=== PATIENT | female | born 1935 | race Caucasian/White ===

== ENCOUNTER 2017-05-11 12:43 | Emergency (ER) | payer MEDICARE, OTHER ==
[~2017-05-11] VITALS: Ht 160 cm; Wt 87.5 kg
[~2017-05-11 12:43] MED LIST: ALBU18HF INHALATION; PRED20TA PO
[2017-05-11 12:45] VITALS: Ht 160 cm; Wt 87.5 kg
[2017-05-11] MEDS ORDERED: ACETAMINOPHEN 500 MG TAB PO STA (13:07)
[2017-05-11] MEDS ORDERED: SODIUM CHLORIDE 0.9% 1L BAG IV* STA (13:07)
[2017-05-11] MEDS ORDERED: IPRATROPIUM (NEB) 0.5 MG/2.5 ML AMP NEB STA (14:02)
[2017-05-11] MEDS ORDERED: ALBUTEROL 0.083% (NEB) 2.5 MG/3 ML AMP NEB STA (14:02)
[2017-05-11] MEDS ORDERED: IBUP-1542 PO (14:04)
[2017-05-11] MEDS ORDERED: HYDR-906 PO (14:05)
[2017-05-11] MEDS ORDERED: AMLO5TAB4 PO (14:05)
[2017-05-11] MEDS ORDERED: METO-448 PO (14:06)
[2017-05-11] MEDS ORDERED: BUPR75TA9 PO (14:09)
[2017-05-11] MEDS ORDERED: LOSA50TA6 PO (14:09)
[2017-05-11] MEDS ORDERED: SERT-165 PO (14:10)
[2017-05-11] MEDS ORDERED: METF500T4 PO (14:10)
[2017-05-11 14:11] LABS: BASOPHILS % 0.5 % (0.0-2.0); EOSINOPHILS % 0.2 % (0.0-7.0); HEMATOCRIT 38.7 % (37.0-47.0); HEMOGLOBIN 13.4 g/dl (12.0-16.0); LYMPHOCYTES # 0.8 10^3/ul (0.8-2.9); LYMPHOCYTES % 9.8 % (15.0-51.0); MEAN CORPUSCULAR HEMOGLOBIN 30.5 pg (29.0-33.0); MEAN CORPUSCULAR HGB CONC 34.6 g/dl (32.0-37.0); MEAN CORPUSCULAR VOLUME 88.2 fl (82.0-101.0); MEAN PLATELET VOLUME 10.6 fl (7.4-10.4); MONOCYTE # 0.6 10^3/ul (0.3-0.9); MONOCYTES % 6.7 % (0.0-11.0); NEUTROPHIL # 6.8 10^3/ul (1.6-7.5); NEUTROPHILS % 82.3 % (39.0-77.0); PLATELET COUNT 135 10^3/UL (140-415); RED BLOOD COUNT 4.39 10^6/ul (4.20-5.40); RED CELL DISTRIBUTION WIDTH 13.8 % (11.5-14.5); WHITE BLOOD COUNT 8.2 10^3/ul (4.8-10.8)
[2017-05-11] MEDS ORDERED: ASPI-664 PO (14:11)
[2017-05-11] MEDS ORDERED: SUCR1TAB56 PO (14:11)
[2017-05-11] MEDS ORDERED: OMEP20CA16 PO (14:11)
[2017-05-11] MEDS ORDERED: ACET1TAB40 PO (14:12)
[2017-05-11] MEDS ORDERED: LEVA15HF6 INH (14:12)
[2017-05-11 14:31] LABS: ALANINE AMINOTRANSFERASE 18 IU/L (13-69); ALBUMIN/GLOBULIN RATIO 1.25; ALKALINE PHOSPHATASE 63 IU/L (42-121); ANION GAP 16 (8-16); ASPARTATE AMINO TRANSFERASE 31 IU/L (15-46); BILIRUBIN,INDIRECT 0.4 mg/dl (0-1.1); BILIRUBIN,TOTAL 0.4 mg/dl (0.2-1.3); BLOOD UREA NITROGEN 14 mg/dl (7-20); CALCIUM 9.5 mg/dl (8.4-10.2); CARBON DIOXIDE 23 mmol/L (21-31); CHLORIDE 101 mmol/L (97-110); CREATININE 0.63 mg/dl (0.44-1.00); GLUCOSE 212 mg/dl (70-220); INR 1.06; POTASSIUM 3.9 mmol/L (3.5-5.1); PROTIME 13.8 Sec (12.2-14.2); PT RATIO 1.1; SODIUM 136 mmol/L (135-144); TOTAL PROTEIN 7.2 g/dl (6.1-8.1)
[2017-05-11 14:32] LABS: PARTIAL THROMBOPLASTIN TIME 29.4 Sec (25.0-35.0)
[2017-05-11 14:44] LABS: TROPONIN-I < 0.012 ng/ml (0.00-0.12)
--- NOTE | 2017-05-11 14:44 | RADRPT ---
PROCEDURE: XR Chest. CLINICAL INDICATION: Shortness of breath. TECHNIQUE: Single frontal view. COMPARISON: 08/07/2016. FINDINGS: There is mild atelectasis at the lung bases and low lung volumes, unchanged. The lungs are otherwise clear. The heart size is normal. There is no pleural effusion. There is no pneumothorax. IMPRESSION: 1. Mild atelectasis at the lung bases. 2. Low lung volumes. 3. No change from 08/07/2016. RPTAT: QQ .Fritz Graham MD, MD Date Time Electronically viewed and signed by .Fritz Graham MD, MD on 05/11/2017 14:44 .R/
[2017-05-11 14:57] LABS: URINE BLOOD (Dip) POC 1+ (NEGATIVE)
[2017-05-11 15:07] LABS: URINE BLOOD (Dip) POC 1+ (NEGATIVE)
[2017-05-11] MEDS ORDERED: CEFTRIAXONE 1 GM/50 ML (PMX) 50 ML IVPB ONE (15:30)
[2017-05-11 15:31] LABS: ADD UMIC YES; UR ASCORBIC ACID NEGATIVE (NEGATIVE); UR BACTERIA MODERATE /HPF (NONE SEEN); UR BILIRUBIN (Dip) NEGATIVE (NEGATIVE); UR BLOOD (Dip) 1+ mg/dL (NEGATIVE); UR CLARITY SLIGHTLY CLOUDY (CLEAR); UR COLOR YELLOW (YELLOW); UR GLUCOSE (Dip) NEGATIVE (NEGATIVE); UR KETONES (Dip) NEGATIVE (NEGATIVE); UR LEUKOCYTE ESTERASE (Dip) 3+ Leu/ul (NEGATIVE); UR NITRITE (Dip) POSITIVE (NEGATIVE); UR RBC 4 /HPF (0-5); UR SPECIFIC GRAVITY (Dip) 1.008 (1.003-1.030); UR SQUAMOUS EPITHELIAL CELL FEW /HPF (FEW); UR TOTAL PROTEIN (Dip) NEGATIVE (NEGATIVE); UR UROBILINOGEN (Dip) NEGATIVE (NEGATIVE)
[2017-05-11 15:46] VITALS: BP 132/60; PULSE 83; RESP 16; TEMP 99
--- NOTE | 2017-05-11 15:53 | ERD ---
ER Documentation Chief Complaint Date/Time DATE: 05/11/17 TIME: 15:49 Chief Complaint DISORIENTED, SLOW TO RESPOND, COUGH & CONGESTION, LAST WELL YESTERDAY HPI This is an 81-year-old female who presents to the emergency room for evaluation of generalized weakness, congestion and fever. According to this patient's daughter who is giving the majority history this patient has been more weak over the past 2 days. The patient was brought to the emergency room for evaluation of this weakness. Daughter states that she has had a fever today but has not given any medication for the fever. The daughter denies any aggravating or relieving factors for herSymptoms. ROS All systems reviewed and are negative except as per history of present illness. Medications Home Meds Reported Medications Levalbuterol* (Xopenex* HFA) 15 Gm Inha, 2 PUFFS INH Q4H Y for WHEEZING AND SOB , INHALER 05/11/17 Acetaminophen with Codeine (Acetaminophen-Cod #3 Tablet) 1 Each Tablet, 1 TAB PO Q12, #7 TAB 05/11/17 Aspirin (Low Dose Aspirin) 81 Mg Tablet.dr, 81 MG PO DAILY, #30 TAB 05/11/17 Omeprazole* (Omeprazole*) 20 Mg Capsule.dr, 20 MG PO BID, #60 CAP 05/11/17 Sucralfate* (Carafate*) 1 Gm Tab, 1 GM PO BID, TAB 05/11/17 Sertraline Hcl* (Sertraline Hcl*) 100 Mg Tablet, 100 MG PO DAILY, #30 TAB 05/11/17 Metformin Hcl* (Metformin Hcl*) 500 Mg Tablet, 500 MG PO WITH BREAKFAST DINNE, # 30 TAB 05/11/17 Bupropion Hcl* (Bupropion Hcl*) 75 Mg Tablet, 75 MG PO DAILY, TAB 05/11/17 Losartan Potassium* (Losartan Potassium*) 50 Mg Tablet, 50 MG PO BID, TAB 05/11/17 Metoprolol Tartrate* (Lopressor*) 25 Mg Tab, 25 MG PO DAILY, #60 TAB 05/11/17 Amlodipine Besylate* (Norvasc*) 5 Mg Tablet, 5 MG PO DAILY, TAB 05/11/17 Hydrocodone/Acetaminophen ([place] 5-325 Tablet) 1 Each Tablet, 1 EACH PO Q12 Y for SEVERE PAIN LEVEL 7-10, TAB 05/11/17 Ibuprofen* (Motrin*) 600 Mg Tab, 600 MG PO Q12 Y for PAIN, TAB 05/11/17 Discontinued Scripts Albuterol Sulfate* (Ventolin HFA*) 18 Gm Hfa.aer.ad, 2 PUFF INHALATION Q4H, #1 INHALER Prov:LIZETTE JIMENEZ MD 08/07/16 Prednisone* (Prednisone*) 20 Mg Tab, 60 MG PO DAILY for 4 Days, TAB Prov:LIZETTE JIMENEZ MD 08/07/16 Allergies Allergies: Coded Allergies: No Known Allergy (Verified , 05/11/17) PMhx/Soc History of Surgery: Yes (right leg) Anesthesia Reaction: No Hx Neurological Disorder: No Hx Respiratory Disorders: No (htn; cholesterol) Hx Cardiac Disorders: No Hx Psychiatric Problems: No Hx Miscellaneous Medical Probl: Yes (left shoulder rcr un repaired) Hx Alcohol Use: No Hx Substance Use: No Hx Tobacco Use: No Smoking Status: Never smoker Physical Exam Vitals Vital Signs Date Time Temp Pulse Resp B/P Pulse Ox O2 Delivery O2 Flow Rate FiO2 05/11/17 15:46 99.0 83 16 132/60 96 Room Air 05/11/17 14:24 105 20 97 21 05/11/17 12:45 100.9 118 20 143/73 96 Physical Exam INITIAL VITAL SIGNS: Reviewed by me GENERAL: The patient is well developed and appropriate for usual state of health in no apparent distress HEENT: Dry mucous membranes, pupils equal, round, and reactive to light. EOMI. There is no scleral icterus. NECK: C-spine is soft and supple, there is no meningismus. There is no cervical lymphadenopathy. LUNGS: Wheezing bilaterally HEART: Tachycardia, no murmurs, clicks, rubs or gallops. ABDOMEN: Soft, non-tender, non-distended. There are bowel sounds in all four quadrants. No rebound or guarding. EXTREMITIES: There is no peripheral cyanosis or edema. No focal swelling or erythema. NEUROLOGICAL: The patient moves all four extremities with 5/5 strength. Cranial nerves II - XII are intact. Normal gait. Alert and oriented SKIN: There is no apparent rash or petechiae. HEME/LYMPHATIC: There is no evidence of excessive bruising or lymphedema. PSYCHIATRIC: The patient does not appear anxious or depressed. Result Diagram: 05/11/17 1330 05/11/17 1330 Results 24 hrs Laboratory Tests Test 05/11/17 13:30 05/11/17 13:45 05/11/17 14:45 05/11/17 15:04 White Blood Count 8.210^3/ul Red Blood Count 4.3910^6/ul Hemoglobin 13.4g/dl Hematocrit 38.7% Mean Corpuscular Volume 88.2fl Mean Corpuscular Hemoglobin 30.5pg Mean Corpuscular Hemoglobin Concent 34.6g/dl Red Cell Distribution Width 13.8% Platelet Count 59622^3/UL Mean Platelet Volume 10.6fl Neutrophils % 82.3% Lymphocytes % 9.8% Monocytes % 6.7% Eosinophils % 0.2% Basophils % 0.5% Nucleated Red Blood Cells % 0.0/100WBC Neutrophils # 6.810^3/ul Lymphocytes # 0.810^3/ul Monocytes # 0.610^3/ul Eosinophils # 0.010^3/ul Basophils # 0.010^3/ul Nucleated Red Blood Cells # 0.010^3/ul Prothrombin Time 13.8Sec Prothrombin Time Ratio 1.1 INR International Normalized Ratio 1.06 Activated Partial Thromboplast Time 29.4Sec Sodium Level 136mmol/L Potassium Level 3.9mmol/L Chloride Level 101mmol/L Carbon Dioxide Level 23mmol/L Anion Gap 16 Blood Urea Nitrogen 14mg/dl Creatinine 0.63mg/dl Glucose Level 212mg/dl Calcium Level 9.5mg/dl Total Bilirubin 0.4mg/dl Direct Bilirubin 0.00mg/dl Indirect Bilirubin 0.4mg/dl Aspartate Amino Transf (AST/SGOT) 31IU/L Alanine Aminotransferase (ALT/SGPT) 18IU/L Alkaline Phosphatase 63IU/L Troponin I < 0.012ng/ml Total Protein 7.2g/dl Albumin 4.0g/dl Globulin 3.20g/dl Albumin/Globulin Ratio 1.25 Lactic Acid Level 2.6mmol/L Urine Color YELLOW Urine Clarity SLIGHTLY CLOUDY Urine pH 6.0 Urine Specific [place] 1.008 Urine Ketones NEGATIVEmg/dL Urine Nitrite POSITIVEmg/dL Urine Bilirubin NEGATIVEmg/dL Urine Urobilinogen NEGATIVEmg/dL Urine Leukocyte Esterase 3+Abhijit/ul Urine Microscopic RBC 4/HPF Urine Microscopic WBC 71/HPF Urine Squamous Epithelial Cells FEW/HPF Urine Bacteria MODERATE/HPF Urine Hemoglobin 1+mg/dL Urine Glucose NEGATIVEmg/dL Urine Total Protein NEGATIVEmg/dl Bedside Urine pH (LAB) 6.0 Bedside Urine Protein (LAB) Trace Bedside Urine Glucose (UA) Negative Bedside Urine Ketones (LAB) Negative Bedside Urine Blood 1+ Bedside Urine Nitrite (LAB) Positive Bedside Urine Leukocyte Esterase (L 2+ Current Medications Medications (Trade) Dose Ordered Sig/Divina Route PRN Reason Start Time Stop Time Status Last Admin Dose Admin Sodium Chloride (NS) 2,500 ml BOLUS OVER 2 HOURS STAT IV* 05/11/17 13:07 05/11/17 13:09 DC 05/11/17 13:07 Acetaminophen (Tylenol Tab) 500 mg ONCE STAT PO 05/11/17 13:07 05/11/17 13:09 DC 05/11/17 13:07 Albuterol (Proventil 0.083% (Neb)) 5 mg ONCE STAT NEB 05/11/17 14:02 05/11/17 14:03 DC 05/11/17 14:22 Ipratropium [place] 0.5 mg 0.5 mg ONCE STAT NEB 05/11/17 14:02 05/11/17 14:03 DC 05/11/17 14:23 Ceftriaxone Sodium (Rocephin) 50 ml @ 100 mls/hr ONCE ONCE IVPB 05/11/17 15:30 05/11/17 15:59 05/11/17 15:19 Procedures/MDM EKG: Rate/Rhythm: Sinus tachycardia QRS, ST, T-waves: [No changes consistent w/ acute ischemia] Impression: [No evidence of ischemia or arrhythmia] Chest X-ray 1V Interpreted by me: Soft Tissue: No acute abnormalities Bones: No acute abnormalities Mediastinum/Cardiac Silhouette/Lungs: [No acute abnormalities] This is an 81-year-old female who presents to the emergency room for evaluation of generalized weakness. When I evaluated this patient she was febrile tachycardic. Did obtain a septic workup on this patient was also demonstrated a urinary tract infection. This patient was given 30 cc/kg of IV normal saline. She was given 1 g Rocephin. She was given Tylenol for fever and when I reevaluated this patient the patient states she was feeling much better. The patient is afebrile, not tachycardic. This patient patient's family felt comfortable taking the patient home at this time and the patient will be discharged home with a prescription for ciprofloxacin. I advised the patient and the patient's family if this patient were to become febrile or any worsening weakness were to occur they need to return immediately to the emergency room for admission to the hospital. They verbalized understanding and HER fund of care at this time. Departure Diagnosis: Primary Impression: Acute cystitis Additional Impression: Generalized weakness Condition: Stable TROY HENNING DO May 11, 2017 15:53
[2017-05-11] MEDS ORDERED: CIPR500T4 PO (15:55)
== END 2017-05-11 16:10 | disposition home or self-care (01) ==
LOC: E/R 12:43
DX: N30.00 Acute cystitis without hematuria (principal); R53.1 Weakness; I10 Essential (primary) hypertension; R06.02 Shortness of breath; Z79.82 Long term (current) use of aspirin; Z79.84 Long term (current) use of oral hypoglycemic drugs
CPT/HCPCS: 36415; 71010; 80053; 81001; 83605; 84484; 85025; 85610; 85730; 87040; 87086; 93005; 94664; 96374; 99285; J0696; J7030; 81003

== ENCOUNTER 2018-09-20 16:10 | Emergency (ER) | payer MEDICARE, OTHER ==
[~2018-09-20] VITALS: Ht 167.6 cm; Wt 95.3 kg
[~2018-09-20 16:10] MED LIST changes: +ACET1TAB40 PO; -ALBU18HF INHALATION; +AMLO5TAB4 PO; +ASPI81TA52 PO; +BUPR75TA9 PO; +CIPR500T4 PO; +HYDR-4011 PO; +IBUP-1542 PO; +LEVA15HF6 INH; +LOSA50TA14 PO; +METF500T24 PO; +METO-448 PO; +OMEP20CA16 PO; -PRED20TA PO; +SERT-165 PO; +SUCR1TAB56 PO
[2018-09-20 16:19] VITALS: Ht 167.6 cm; Wt 95.3 kg
[2018-09-20] MEDS ORDERED: ALBUTEROL 0.5% (NEB) 2.5 MG/0.5 ML AMP INH STA (18:06)
[2018-09-20] MEDS ORDERED: IPRATROPIUM (NEB) 0.5 MG/2.5 ML AMP INH STA (18:06)
[2018-09-20] MEDS ORDERED: AZITHROMYCIN 500MG/NS (PMX) 250 ML IV STA (18:06)
[2018-09-20] MEDS ORDERED: LOSA50TA14 PO (18:21)
[2018-09-20] MEDS ORDERED: LEVA15HF6 INH (18:21)
[2018-09-20] MEDS ORDERED: METO-448 PO (18:22)
[2018-09-20] MEDS ORDERED: SIMV20TA PO (18:22)
[2018-09-20] MEDS ORDERED: MIRA25TA PO (18:24)
[2018-09-20] MEDS ORDERED: METF500T24 PO (18:24)
[2018-09-20] MEDS ORDERED: BUDE6HFA INHALATION (18:25)
[2018-09-20] MEDS ORDERED: OMEP20CA16 PO (18:25)
[2018-09-20] MEDS ORDERED: SERT-165 PO (18:26)
[2018-09-20] MEDS ORDERED: SUCR1TAB56 PO (18:26)
[2018-09-20] MEDS ORDERED: BUPR75TA9 PO (18:27)
[2018-09-20] MEDS ORDERED: AMLO5TAB4 PO (18:27)
[2018-09-20] MEDS ORDERED: DEXAMETHASONE 10 MG/ML 1 ML INJ IV ONE (18:30)
--- NOTE | 2018-09-20 18:37 | ERD ---
ER Documentation Chief Complaint Chief Complaint Complains of wheezing and SOB at home per daughter HPI 83-year-old female with history of asthma who presents for acute on chronic exacerbation, she was recently seen by PMD, and finished a 5-day course of antibiotics, patient denies fever, she has no cardiac history. ROS All systems reviewed and are negative except as per history of present illness. Medications Home Meds Active Scripts Beclomethasone Dipropionate (Qvar Redihaler (80 MCG)) 10.6 Gm Hfa.aeroba, 10.6 GM IH BID for 60 Days, INH Prov:MIKY SHER MD 09/20/18 Reported Medications Amlodipine Besylate* (Norvasc*) 5 Mg Tablet, 5 MG PO DAILY, TAB 09/20/18 Bupropion Hcl* (Bupropion Hcl*) 75 Mg Tablet, 75 MG PO DAILY, TAB 09/20/18 Sertraline Hcl* (Sertraline Hcl*) 100 Mg Tablet, 100 MG PO DAILY, #30 TAB 09/20/18 Sucralfate* (Carafate*) 1 Gm Tab, 1 GM PO BID, TAB 09/20/18 Omeprazole* (Omeprazole*) 20 Mg Capsule.dr, 20 MG PO DAILY, #30 CAP 09/20/18 Budesonide-Formoterol Fumarate* (Symbicort*) 160-4.5 Hfa.aer.ad, 2 PUFF INHALATION BID, #1 EACH 09/20/18 Metformin Hcl* (Metformin Hcl*) 500 Mg Tablet, 500 MG PO WITH BREAKFAST DINNE, #60 TAB 09/20/18 Mirabegron (Mybetriq) 25 Mg Tab.er.24h, 25 MG PO DAILY, TAB 09/20/18 Metoprolol Tartrate* (Lopressor*) 25 Mg Tab, 25 MG PO DAILY, #60 TAB 09/20/18 Simvastatin* (Zocor*) 20 Mg Tablet, 20 MG PO QHS, #30 TAB 09/20/18 Levalbuterol* (Xopenex* HFA) 15 Gm Inha, 2 PUFFS INH Q8 PRN for WHEEZING AND SOB, EA 09/20/18 Losartan Potassium* (Losartan Potassium*) 50 Mg Tablet, 50 MG PO BID, TAB 09/20/18 Discontinued Reported Medications Levalbuterol* (Xopenex* HFA) 15 Gm Inha, 2 PUFFS INH Q4H PRN for WHEEZING AND SOB, INHALER 05/11/17 Acetaminophen with Codeine (Acetaminophen-Cod #3 Tablet) 1 Each Tablet, 1 TAB PO Q12, #7 TAB 05/11/17 Aspirin (Low Dose Aspirin) 81 Mg Tablet.dr, 81 MG PO DAILY, #30 TAB 05/11/17 Omeprazole* (Omeprazole*) 20 Mg Capsule.dr, 20 MG PO BID, #60 CAP 05/11/17 Sucralfate* (Carafate*) 1 Gm Tab, 1 GM PO BID, TAB 05/11/17 Sertraline Hcl* (Sertraline Hcl*) 100 Mg Tablet, 100 MG PO DAILY, #30 TAB 05/11/17 Metformin Hcl* (Metformin Hcl*) 500 Mg Tablet, 500 MG PO WITH BREAKFAST DINNE, #30 TAB 05/11/17 Bupropion Hcl* (Bupropion Hcl*) 75 Mg Tablet, 75 MG PO DAILY, TAB 05/11/17 Losartan Potassium* (Losartan Potassium*) 50 Mg Tablet, 50 MG PO BID, TAB 05/11/17 Metoprolol Tartrate* (Lopressor*) 25 Mg Tab, 25 MG PO DAILY, #60 TAB 05/11/17 Amlodipine Besylate* (Norvasc*) 5 Mg Tablet, 5 MG PO DAILY, TAB 05/11/17 Hydrocodone/Acetaminophen ([place] 5-325 Tablet) 1 Each Tablet, 1 EACH PO Q12 PRN for SEVERE PAIN LEVEL 7-10, TAB 05/11/17 Ibuprofen* (Motrin*) 600 Mg Tab, 600 MG PO Q12 PRN for PAIN, TAB 05/11/17 Discontinued Scripts Ciprofloxacin Hcl* (Ciprofloxacin Hcl*) 500 Mg Tablet, 500 MG PO BID for 14 Days, TAB Prov:TROY HENNING 05/11/17 Allergies Allergies: Coded Allergies: No Known Allergy (Verified , 09/20/18) PMhx/Soc History of Surgery: Yes (right leg) Anesthesia Reaction: No Hx Neurological Disorder: No Hx Respiratory Disorders: No (htn; cholesterol) Hx Cardiac Disorders: No Hx Psychiatric Problems: No Hx Miscellaneous Medical Probl: Yes (left shoulder rcr un repaired) Hx Alcohol Use: No Hx Substance Use: No Hx Tobacco Use: No Physical Exam Vitals Vital Signs Date Temp Pulse Resp B/P (MAP) Pulse Ox O2 O2 Flow FiO2 Time Delivery Rate 09/20/18 88 20 100 Nasal 2.0 18:25 Cannula 09/20/18 Nasal 2 18:20 Cannula 09/20/18 Nasal 2.0 18:20 Cannula 09/20/18 98.2 94 20 176/81 94 16:19 (112) Physical Exam Const: No acute distress Head: Atraumatic Eyes: Normal Conjunctiva ENT: Normal External Ears, Nose and Mouth. Neck: Full range of motion. No meningismus. Resp: Clear to auscultation bilaterally Cardio: Regular rate and rhythm, no murmurs Abd: Soft, non tender, non distended. Normal bowel sounds Skin: No petechiae or rashes Back: No midline or flank tenderness Ext: No cyanosis, or edema Neur: Awake and alert Psych: Normal Mood and Affect Result Diagram: 09/20/18182509/20/181825 Results 24 hrs Laboratory Tests Test 09/20/18 18:26 09/20/18 18:38 White Blood Count 8.3 10^3/ul Red Blood Count 4.61 10^6/ul Hemoglobin 13.2 g/dl Hematocrit 40.6 % Mean Corpuscular Volume 88.1 fl Mean Corpuscular Hemoglobin 28.6 pg Mean Corpuscular Hemoglobin Concent 32.5 g/dl Red Cell Distribution Width 13.6 % Platelet Count 189 10^3/UL Mean Platelet Volume 9.7 fl Immature Granulocytes % 0.200 % Neutrophils % 49.7 % Lymphocytes % 24.7 % Monocytes % 7.2 % Eosinophils % 17.6 % Basophils % 0.6 % Nucleated Red Blood Cells % 0.0 /100WBC Immature Granulocytes # 0.020 10^3/ul Neutrophils # 4.1 10^3/ul Lymphocytes # 2.1 10^3/ul Monocytes # 0.6 10^3/ul Eosinophils # 1.5 10^3/ul Basophils # 0.1 10^3/ul Nucleated Red Blood Cells # 0.0 10^3/ul Prothrombin Time 12.5 Sec Prothrombin Time Ratio 1.0 INR International Normalized Ratio 0.92 Activated Partial Thromboplast Time 29.6 Sec Sodium Level 142 mmol/L Potassium Level 4.3 mmol/L Chloride Level 103 mmol/L Carbon Dioxide Level 26 mmol/L Anion Gap 13 Blood Urea Nitrogen 20 mg/dl Creatinine 0.78 mg/dl Est Glomerular Filtrat Rate mL/min mL/min Glucose Level 158 mg/dl Calcium Level 10.0 mg/dl Troponin I < 0.012 ng/ml B-Type Natriuretic Peptide 100 PG/ML POC Venous Lactate 2.3 mmol/L Current Medications Medications Dose Sig/Divina Start Time Status Last (Trade) Ordered Route PRN Stop Time Admin Dose Reason Admin Ipratropium 0.5 mg ONCE STAT 09/20/18 DC 09/20/18 [place] INH 18:06 18:25 (Atrovent 09/20/18 18:08 0.02% (Neb)) Albuterol 15 mg ONCE STAT 09/20/18 DC 09/20/18 (Proventil INH 18:06 18:25 0.5% (Neb)) 09/20/18 18:08 Azithromycin 250 ml @ ONCE STAT 09/20/18 DC 09/20/18 250 mls/hr IV 18:06 18:44 09/20/18 19:05 10 mg ONCE ONCE 09/20/18 DC 09/20/18 Dexamethasone IV 18:30 18:44 (Decadron) 09/20/18 18:38 Procedures/MDM 83-year-old female presents shortness of breath and wheezing, consistent with most likely asthma exacerbation, she has no tobacco history. Chest x-ray showed no evidence of pneumonia, labs were overall unremarkable, with troponin negative POC lactate was 2.3, which I suspect is most likely related to inhaler, she has no evidence of sepsis or an organ ischemia, patient stable for discharge home, I recommended starting Qvar, at discharge she was in acute distress. EKG: Rate/Rhythm: Normal Sinus Rhythm QRS, ST, T-waves: No changes consistent w/ acute ischemia Impression: No evidence of ischemia or arrhythmia Departure Diagnosis: Primary Impression: Wheezing Condition: Stable MIKY SHER MD Sep 20, 2018 18:37
[2018-09-20] MEDS ORDERED: BECL10.62 IH (20:20)
[2018-09-20 20:29] VITALS: BP 127/63; PULSE 96; RESP 22
== END 2018-09-20 20:32 | disposition home or self-care (01) ==
LOC: E/R 16:10
DX: J45.901 Unspecified asthma with (acute) exacerbation (principal); I10 Essential (primary) hypertension; Z79.84 Long term (current) use of oral hypoglycemic drugs
CPT/HCPCS: 36415; 71045; 80048; 83605; 83880; 84484; 85025; 85610; 85730; 93005; 94644; 96374; 96375; 99285; J0456; J1100